=== PATIENT | male | born 1990 | race Caucasian/White ===

== ENCOUNTER 2020-07-03 09:36 | Inpatient (IN) | payer OTHER ==
[~2020-07-03] VITALS: Ht 162.6 cm; Wt 63.6 kg
[2020-07-03 11:25] LABS: BASOPHILS % (AUTO) 0.7 % (0.0-2.0); EOSINOPHILS % (AUTO) 0.7 % (1.0-6.0); HEMATOCRIT 42.1 % (41-53); HEMOGLOBIN 14.5 g/dL (13.5-17.5); LYMPHOCYTES # (AUTO) 1.3 K/uL (1.0-4.8); LYMPHOCYTES % (AUTO) 18.5 % (22.0-44.0); MEAN CORPUSCULAR HEMOGLOBIN 30.4 pg (26.0-34.0); MEAN CORPUSCULAR HGB CONC 34.4 G/dL (31.0-37.0); MEAN CORPUSCULAR VOLUME 88 fL (80-100); MONOCYTES # (AUTO) 0.4 K/uL (0.1-1.0); MONOCYTES % (AUTO) 5.8 % (2.0-9.0); NEUTROPHILS % (AUTO) 74.3 % (40.0-70.0); PLATELET COUNT (AUTO) 202 K/uL (150-450); RED BLOOD CELL COUNT(AUTO) 4.77 MIL/uL (4.50-5.90); RED CELL DISTRIBUTION WIDTH 13.1 % (11.5-14.5)
[2020-07-03 11:36] LABS: ANION GAP 5 mmol/L (8-16); CARBON DIOXIDE 30 mmol/L (22-29); CHLORIDE 103 mmol/L (98-107); CREATININE 0.77 mg/dL (0.60-1.30); GLOMERULAR FILTR. RATE CALC > 60 mL/min (>60); GLUCOSE,RANDOM 76 mg/dL (70-110); POTASSIUM 4.2 mmol/L (3.5-5.1); SODIUM SERUM 138 mmol/L (136-145); UREA NITROGEN, BLOOD 9 mg/dL (7-18)
[2020-07-03 11:42] LABS: ALANINE AMINOTRANSFERASE 28 U/L (12-78); ALBUMIN 4.3 g/dL (3.4-5.0); ALKALINE PHOSPHATASE 67 U/L (46-116); ASPARTATE AMINOTRANSFERASE 24 U/L (15-37); BILIRUBIN,TOTAL 0.9 mg/dL (0.1-1.0); TOTAL PROTEIN, SERUM 8.2 g/dL (6.4-8.2)
[2020-07-03 13:38] LABS: ACETAMINOPHEN < 2 mcg/mL (10-30); SALICYLATE < 2.8 mg/dL (2.8-20.0)
[2020-07-03 14:03] LABS: AMPHET/METH SCREEN,URINE NEGATIVE (NEGATIVE); BARBITURATE SCREEN, URINE NEGATIVE (NEGATIVE); BENZODIAZEPINES SCREEN,URINE NEGATIVE (NEGATIVE); CANNABINOID SCREEN,URINE NEGATIVE (NEGATIVE); COCAINE SCREEN,URINE NEGATIVE (NEGATIVE); METHADONE SCREEN, URINE NEGATIVE (NEGATIVE); OPIATE SCREEN,URINE NEGATIVE (NEGATIVE)
[2020-07-03 14:08] LABS: PHENCYCLIDINE SCREEN,URINE NEGATIVE (NEGATIVE)
[2020-07-03 14:42] LABS: COVID AG,FIA SOURCE NASOPHARYNGEAL
[2020-07-03] MEDS ORDERED: MAGNESIUM HYDROXIDE SUSPENSION 30 ML UDCUP PO PRN (15:00)
[2020-07-03] MEDS ORDERED: IPRATROPIUM BROMIDE 0.5 MG/2.5 ML NEB SOLUTION NEB PRN (15:00)
[2020-07-03] MEDS ORDERED: ONDANSETRON HCL 4 MG/2 ML VIAL IVP PRN (15:00)
[2020-07-03] MEDS ORDERED: BISACODYL 10 MG RECTAL RECTAL SUPPOSITORY PR PRN (15:00)
[2020-07-03] MEDS ORDERED: ALBUTEROL SULFATE 2.5 MG/0.5 ML NEB SOLUTION NEB PRN (15:00)
[2020-07-03 16:15] VITALS: BP 100/68
[2020-07-03 21:00] VITALS: BP 107/49
[2020-07-03] MEDS: ACETAMINOPHEN 325 MG TABLET PO PRN (21:08)
[2020-07-04 05:15] VITALS: BP 110/58
[2020-07-04] MEDS: ACETAMINOPHEN 325 MG TABLET PO PRN (07:51)
[2020-07-04 08:09] VITALS: BP 108/60
[2020-07-04] MEDS: FLUoxetine HCL 20 MG CAPSULE PO SCH (10:30)
[2020-07-04 19:45] VITALS: BP 100/61
[2020-07-05 04:58] VITALS: BP 102/59
[2020-07-05 07:30] VITALS: BP 110/66
[2020-07-05 07:57] LABS: BASOPHILS % (AUTO) 0.7 % (0.0-2.0); EOSINOPHILS % (AUTO) 1.5 % (1.0-6.0); HEMATOCRIT 40.4 % (41-53); HEMOGLOBIN 14.2 g/dL (13.5-17.5); LYMPHOCYTES # (AUTO) 1.6 K/uL (1.0-4.8); LYMPHOCYTES % (AUTO) 22.8 % (22.0-44.0); MEAN CORPUSCULAR HEMOGLOBIN 30.6 pg (26.0-34.0); MEAN CORPUSCULAR HGB CONC 35.2 G/dL (31.0-37.0); MEAN CORPUSCULAR VOLUME 87 fL (80-100); MONOCYTES # (AUTO) 0.5 K/uL (0.1-1.0); MONOCYTES % (AUTO) 7.1 % (2.0-9.0); NEUTROPHILS # (AUTO) 4.9 K/uL (1.8-7.7); NEUTROPHILS % (AUTO) 67.9 % (40.0-70.0); PLATELET COUNT (AUTO) 209 K/uL (150-450); RED BLOOD CELL COUNT(AUTO) 4.64 MIL/uL (4.50-5.90); RED CELL DISTRIBUTION WIDTH 13.1 % (11.5-14.5)
[2020-07-05] MEDS: FLUoxetine HCL 20 MG CAPSULE PO SCH (08:03)
[2020-07-05 08:29] LABS: ANION GAP 10 mmol/L (8-16); CALCIUM, TOTAL 8.9 mg/dL (8.8-10.5); CARBON DIOXIDE 26 mmol/L (22-29); CHLORIDE 105 mmol/L (98-107); CREATININE 0.81 mg/dL (0.60-1.30); GLOMERULAR FILTR. RATE CALC > 60 mL/min (>60); GLUCOSE,RANDOM 78 mg/dL (70-110); POTASSIUM 3.9 mmol/L (3.5-5.1); SODIUM SERUM 141 mmol/L (136-145); UREA NITROGEN, BLOOD 15 mg/dL (7-18)
[2020-07-05 15:00] VITALS: BP 112/64
[2020-07-05 19:01] VITALS: BP 116/80
[2020-07-05] MEDS: TraZODone HCL 50 MG TABLET PO PRN (20:29)
[2020-07-06 05:44] VITALS: BP 104/57
[2020-07-06 07:46] VITALS: BP 107/63
[2020-07-06] MEDS: FLUoxetine HCL 20 MG CAPSULE PO SCH (09:56)
[2020-07-06 15:59] VITALS: BP 112/68
[2020-07-06 19:49] VITALS: BP 113/63
[2020-07-06] MEDS: TraZODone HCL 50 MG TABLET PO PRN (20:36)
[2020-07-07 04:19] VITALS: BP 103/65
[2020-07-07 08:33] VITALS: BP 102/59
[2020-07-07] MEDS: FLUoxetine HCL 20 MG CAPSULE PO SCH (09:00)
[2020-07-07 20:30] VITALS: BP 104/65
[2020-07-07] MEDS: TraZODone HCL 50 MG TABLET PO PRN (21:32)
[2020-07-08 04:00] VITALS: BP 106/51
[2020-07-08 07:34] VITALS: BP 102/56
[2020-07-08] MEDS: FLUoxetine HCL 20 MG CAPSULE PO SCH (08:57)
[2020-07-08 20:25] VITALS: BP 104/65
[2020-07-08] MEDS: ACETAMINOPHEN 325 MG TABLET PO PRN (21:50)
[2020-07-08] MEDS: TraZODone HCL 50 MG TABLET PO PRN (21:50)
[2020-07-09 04:16] VITALS: BP 98/52
[2020-07-09] MEDS: FLUoxetine HCL 20 MG CAPSULE PO SCH (08:52)
[2020-07-09 08:58] VITALS: BP 119/86
[2020-07-09] MEDS: TraZODone HCL 50 MG TABLET PO PRN (21:17)
[2020-07-09 22:20] VITALS: BP 109/63
[2020-07-10 05:20] VITALS: BP 97/57
[2020-07-10] MEDS: FLUoxetine HCL 20 MG CAPSULE PO SCH (08:24)
[2020-07-10 08:28] VITALS: BP 98/56
[2020-07-10 19:50] VITALS: BP 130/78
[2020-07-10] MEDS: TraZODone HCL 50 MG TABLET PO PRN (20:44)
[2020-07-11 04:55] VITALS: BP 95/53
[2020-07-11 08:40] VITALS: BP 105/66
[2020-07-11] MEDS: FLUoxetine HCL 20 MG CAPSULE PO SCH (08:58)
[2020-07-11] MEDS ORDERED: FLUO-191 PO (09:29)
== END 2020-07-11 11:35 | DRG 178 ==
LOC: EMS 10:00 → 6S 14:38
PROVIDERS: ADMIT Internal Medicine; ATTEND Internal Medicine
DX: U07.1 COVID-19 (principal); R45.851 Suicidal ideations; F33.2 Major depressive disorder, recurrent severe without psychotic features; Z87.891 Personal history of nicotine dependence
CPT/HCPCS: 87426; G0480; G0481

== ENCOUNTER 2020-07-11 15:23 | Inpatient (IN) | payer OTHER ==
[~2020-07-11] VITALS: Ht 162.6 cm; Wt 69.2 kg
[~2020-07-11 15:23] MED LIST: FLUO-191 PO
[2020-07-11 17:31] LABS: COVID AG,FIA SOURCE NASOPHARYNGEAL
[2020-07-11 18:38] LABS: BASOPHILS % (AUTO) 1.5 % (0.0-2.0); EOSINOPHILS % (AUTO) 0.8 % (1.0-6.0); HEMATOCRIT 43.3 % (41-53); HEMOGLOBIN 15.2 g/dL (13.5-17.5); LYMPHOCYTES # (AUTO) 1.4 K/uL (1.0-4.8); LYMPHOCYTES % (AUTO) 18.9 % (22.0-44.0); MEAN CORPUSCULAR HEMOGLOBIN 30.8 pg (26.0-34.0); MEAN CORPUSCULAR HGB CONC 35.2 G/dL (31.0-37.0); MEAN CORPUSCULAR VOLUME 88 fL (80-100); MONOCYTES # (AUTO) 0.4 K/uL (0.1-1.0); MONOCYTES % (AUTO) 5.4 % (2.0-9.0); NEUTROPHILS # (AUTO) 5.5 K/uL (1.8-7.7); NEUTROPHILS % (AUTO) 73.4 % (40.0-70.0); PLATELET COUNT (AUTO) 244 K/uL (150-450); RED BLOOD CELL COUNT(AUTO) 4.94 MIL/uL (4.50-5.90); RED CELL DISTRIBUTION WIDTH 13.3 % (11.5-14.5)
[2020-07-11 18:50] LABS: ANION GAP 6 mmol/L (8-16); CARBON DIOXIDE 30 mmol/L (22-29); CHLORIDE 102 mmol/L (98-107); GLOMERULAR FILTR. RATE CALC > 60 mL/min (>60); GLUCOSE,RANDOM 83 mg/dL (70-110); POTASSIUM 4.2 mmol/L (3.5-5.1); SODIUM SERUM 138 mmol/L (136-145); UREA NITROGEN, BLOOD 10 mg/dL (7-18)
[2020-07-11 18:54] LABS: AMPHET/METH SCREEN,URINE NEGATIVE (NEGATIVE); BARBITURATE SCREEN, URINE NEGATIVE (NEGATIVE); BENZODIAZEPINES SCREEN,URINE NEGATIVE (NEGATIVE); CANNABINOID SCREEN,URINE NEGATIVE (NEGATIVE); COCAINE SCREEN,URINE NEGATIVE (NEGATIVE); METHADONE SCREEN, URINE NEGATIVE (NEGATIVE); OPIATE SCREEN,URINE NEGATIVE (NEGATIVE)
[2020-07-11 18:56] LABS: ALANINE AMINOTRANSFERASE 30 U/L (12-78); ALBUMIN 4.7 g/dL (3.4-5.0); ALKALINE PHOSPHATASE 74 U/L (46-116); ASPARTATE AMINOTRANSFERASE 23 U/L (15-37); BILIRUBIN,TOTAL 0.5 mg/dL (0.1-1.0); TOTAL PROTEIN, SERUM 8.8 g/dL (6.4-8.2)
[2020-07-11 19:05] LABS: PHENCYCLIDINE SCREEN,URINE NEGATIVE (NEGATIVE)
[2020-07-11 20:29] VITALS: BP 128/70
[2020-07-11] MEDS ORDERED: MAGNESIUM HYDROXIDE SUSPENSION 30 ML UDCUP PO PRN (22:15)
[2020-07-11] MEDS ORDERED: ZOLPIDEM TARTRATE 5 MG TABLET PO PRN (22:15)
[2020-07-11] MEDS ORDERED: ACETAMINOPHEN 325 MG TABLET PO PRN (22:15)
[2020-07-11] MEDS ORDERED: BISACODYL 10 MG RECTAL RECTAL SUPPOSITORY PR PRN (22:15)
[2020-07-11] MEDS ORDERED: ONDANSETRON HCL 4 MG/2 ML VIAL IVP PRN (22:15)
[2020-07-12 04:25] VITALS: BP 108/56
[2020-07-12 08:33] VITALS: BP 116/63
[2020-07-12] MEDS: FLUoxetine HCL 20 MG CAPSULE PO SCH (09:11)
[2020-07-12] MEDS: DOCUSATE SODIUM 100 MG CAPSULE PO SCH ×2 (09:11→20:26)
[2020-07-12] MEDS: SERTRALINE HCL 50 MG TABLET PO SCH ×2 (11:45→20:27)
[2020-07-12] MEDS ORDERED: ONDANSETRON HCL 4 MG TABLET PO PRN (17:45)
[2020-07-12] MEDS: TraZODone HCL 50 MG TABLET PO SCH (20:27)
[2020-07-12 20:48] VITALS: BP 114/54
[2020-07-13 04:50] VITALS: BP 114/51
[2020-07-13 08:26] VITALS: BP 108/61
[2020-07-13] MEDS: SERTRALINE HCL 50 MG TABLET PO SCH ×2 (09:25→20:48)
[2020-07-13] MEDS: DOCUSATE SODIUM 100 MG CAPSULE PO SCH ×2 (09:25→20:48)
[2020-07-13] MEDS: FLUoxetine HCL 20 MG CAPSULE PO SCH (09:25)
[2020-07-13] MEDS: ASCORBIC ACID 500 MG TABLET PO SCH (12:20)
[2020-07-13 20:09] VITALS: BP 122/65
[2020-07-13] MEDS: TraZODone HCL 50 MG TABLET PO SCH (20:48)
[2020-07-13] MEDS: ZINC SULFATE 220 MG CAPSULE PO SCH (20:48)
[2020-07-14 08:10] VITALS: BP 117/67
[2020-07-14] MEDS: DOCUSATE SODIUM 100 MG CAPSULE PO SCH ×2 (08:42→20:34)
[2020-07-14] MEDS: SERTRALINE HCL 50 MG TABLET PO SCH ×2 (08:42→20:34)
[2020-07-14] MEDS: ASCORBIC ACID 500 MG TABLET PO SCH (08:42)
[2020-07-14] MEDS: ZINC SULFATE 220 MG CAPSULE PO SCH ×2 (08:42→20:34)
[2020-07-14 20:00] VITALS: BP 120/67
[2020-07-14] MEDS: TraZODone HCL 50 MG TABLET PO SCH (20:34)
[2020-07-15 04:15] VITALS: BP 95/52
[2020-07-15] MEDS: DOCUSATE SODIUM 100 MG CAPSULE PO SCH ×2 (08:00→20:34)
[2020-07-15] MEDS: ZINC SULFATE 220 MG CAPSULE PO SCH ×2 (08:01→20:34)
[2020-07-15] MEDS: ASCORBIC ACID 500 MG TABLET PO SCH (08:01)
[2020-07-15] MEDS: SERTRALINE HCL 50 MG TABLET PO SCH ×2 (08:01→20:34)
[2020-07-15 08:18] VITALS: BP 110/66
[2020-07-15 20:15] VITALS: BP 110/64
[2020-07-15] MEDS: TraZODone HCL 50 MG TABLET PO SCH (20:34)
[2020-07-16 04:31] VITALS: BP 100/52
[2020-07-16] MEDS: DOCUSATE SODIUM 100 MG CAPSULE PO SCH ×2 (07:59→20:33)
[2020-07-16] MEDS: ZINC SULFATE 220 MG CAPSULE PO SCH ×2 (07:59→20:33)
[2020-07-16] MEDS: ASCORBIC ACID 500 MG TABLET PO SCH (07:59)
[2020-07-16] MEDS: SERTRALINE HCL 50 MG TABLET PO SCH ×2 (08:00→20:33)
[2020-07-16 08:05] VITALS: BP 106/50
[2020-07-16 12:13] VITALS: BP 116/67
[2020-07-16 16:13] VITALS: BP 116/63
[2020-07-16 20:25] VITALS: BP 120/69
[2020-07-16] MEDS: TraZODone HCL 50 MG TABLET PO SCH (20:33)
[2020-07-17 04:57] VITALS: BP 99/52
[2020-07-17 07:37] VITALS: BP 98/58
[2020-07-17] MEDS: DOCUSATE SODIUM 100 MG CAPSULE PO SCH ×2 (08:27→20:44)
[2020-07-17] MEDS: ASCORBIC ACID 500 MG TABLET PO SCH (08:28)
[2020-07-17] MEDS: SERTRALINE HCL 50 MG TABLET PO SCH ×2 (08:28→20:43)
[2020-07-17] MEDS: ZINC SULFATE 220 MG CAPSULE PO SCH ×2 (08:28→20:44)
[2020-07-17] MEDS: OLANZapine 5 MG TABLET PO SCH (12:53)
[2020-07-17] MEDS: TraZODone HCL 50 MG TABLET PO SCH (20:44)
[2020-07-17 21:05] VITALS: BP 93/45
[2020-07-17 22:42] VITALS: BP 96/45
[2020-07-18 05:25] VITALS: BP 106/66
[2020-07-18 08:22] VITALS: BP 108/72
[2020-07-18] MEDS: DOCUSATE SODIUM 100 MG CAPSULE PO SCH ×2 (09:00→21:20)
[2020-07-18] MEDS: ZINC SULFATE 220 MG CAPSULE PO SCH ×2 (09:17→21:20)
[2020-07-18] MEDS: OLANZapine 5 MG TABLET PO SCH (09:17)
[2020-07-18] MEDS: SERTRALINE HCL 50 MG TABLET PO SCH ×2 (09:17→21:20)
[2020-07-18] MEDS: ASCORBIC ACID 500 MG TABLET PO SCH (09:18)
[2020-07-18 19:28] VITALS: BP 114/70
[2020-07-18] MEDS: TraZODone HCL 50 MG TABLET PO SCH (21:20)
[2020-07-19 04:54] VITALS: BP 104/60
[2020-07-19 07:21] VITALS: BP 117/65
[2020-07-19] MEDS: SERTRALINE HCL 50 MG TABLET PO SCH ×2 (08:37→20:31)
[2020-07-19] MEDS: ZINC SULFATE 220 MG CAPSULE PO SCH ×2 (08:37→20:31)
[2020-07-19] MEDS: ASCORBIC ACID 500 MG TABLET PO SCH (08:37)
[2020-07-19] MEDS: DOCUSATE SODIUM 100 MG CAPSULE PO SCH ×2 (08:37→20:31)
[2020-07-19] MEDS: OLANZapine 5 MG TABLET PO SCH (08:38)
[2020-07-19 20:18] VITALS: BP 102/53
[2020-07-19] MEDS: TraZODone HCL 50 MG TABLET PO SCH (20:30)
[2020-07-20 07:45] VITALS: BP 128/81
[2020-07-20] MEDS: ASCORBIC ACID 500 MG TABLET PO SCH (08:10)
[2020-07-20] MEDS: ZINC SULFATE 220 MG CAPSULE PO SCH (08:10)
[2020-07-20] MEDS: OLANZapine 5 MG TABLET PO SCH (08:10)
[2020-07-20] MEDS: SERTRALINE HCL 50 MG TABLET PO SCH (08:10)
[2020-07-20] MEDS: DOCUSATE SODIUM 100 MG CAPSULE PO SCH (08:10)
[2020-07-20] MEDS ORDERED: SERT50TA12 PO (11:30)
[2020-07-20] MEDS ORDERED: TRAZ-252 PO (11:31)
[2020-07-20] MEDS ORDERED: MOM30 PO (11:31)
[2020-07-20] MEDS ORDERED: ACET-2865 PO (11:31)
== END 2020-07-20 16:55 | DRG 178 ==
LOC: EMS 15:23 → 6S 19:00
PROVIDERS: ADMIT Hospitalist; ATTEND Hospitalist
DX: U07.1 COVID-19 (principal); R45.851 Suicidal ideations; F33.2 Major depressive disorder, recurrent severe without psychotic features; F41.9 Anxiety disorder, unspecified; F17.210 Nicotine dependence, cigarettes, uncomplicated
CPT/HCPCS: 87081; 87426; 99285; Q0162

== ENCOUNTER 2024-04-10 14:51 | Inpatient (IN) | payer MEDICAID, OTHER ==
[~2024-04-10] VITALS: Ht 162.6 cm; Wt 68.1 kg
[~2024-04-10 14:51] MED LIST changes: +ACET-2247 PO; +BENZ100C68 PO; -FLUO-191 PO; +SERT-158 PO; +TRAZ-252 PO
[2024-04-10] MEDS ORDERED: HALOPERIDOL 5 MG TABLET PO PRN (16:45)
[2024-04-10] MEDS ORDERED: LORazepam 2 MG TABLET PO PRN (16:45)
[2024-04-10] MEDS ORDERED: ZOLPIDEM TARTRATE 10 MG TABLET PO PRN (17:15)
[2024-04-10 17:56] LABS: GLUCOMETER DEV NAME(LOC) POC.BV; POC SARS-COV2 AG, FIA NEGATIVE (NEGATIVE)
[2024-04-10 19:20] VITALS: BP 131/68; PULSE 77; RESP 16; TEMP 98.4; O2SAT 99
[2024-04-10 20:00] VITALS: BP 131/68; PULSE 77; RESP 16; TEMP 98.4; O2SAT 99
[2024-04-10] MEDS ORDERED: FLUTICASONE PROPIONATE 50 MCG/SPRAY 16 GM NASAL SPRAY NASAL SCH (21:00)
[2024-04-11 08:52] VITALS: BP 117/61; PULSE 69; RESP 18; TEMP 97.5; O2SAT 98
[2024-04-11 08:57] LABS: BASOPHILS % (AUTO) 1.4 % (0.0-2.0); EOSINOPHILS % (AUTO) 6.4 % (1.0-6.0); HEMATOCRIT 43.7 % (41-53); HEMOGLOBIN 14.8 g/dL (13.5-17.5); LYMPHOCYTES # (AUTO) 1.3 K/uL (1.0-4.8); MEAN CORPUSCULAR HGB CONC 33.8 G/dL (31.0-37.0); MEAN CORPUSCULAR VOLUME 92 fL (80-100); MONOCYTES # (AUTO) 0.4 K/uL (0.1-1.0); MONOCYTES % (AUTO) 6.1 % (2.0-9.0); NEUTROPHILS # (AUTO) 4.2 K/uL (1.8-7.7); NEUTROPHILS % (AUTO) 66.1 % (40.0-70.0); PLATELET COUNT (AUTO) 208 K/uL (150-450); RED BLOOD CELL COUNT(AUTO) 4.76 MIL/uL (4.50-5.90); RED CELL DISTRIBUTION WIDTH 13.2 % (11.5-14.5); WHITE BLOOD COUNT (AUTO) 6.3 K/uL (4.5-11.0)
[2024-04-11] MEDS: FLUTICASONE PROPIONATE 50 MCG/SPRAY 16 GM NASAL SPRAY NASAL SCH (09:08)
[2024-04-11 09:19] LABS: HEMOGLOBIN A1C 4.3 % (3.8-5.6)
[2024-04-11 09:47] LABS: ALANINE AMINOTRANSFERASE 19 U/L (12-78); ALBUMIN 3.6 g/dL (3.4-5.0); ALKALINE PHOSPHATASE 79 U/L (46-116); ANION GAP 6 mmol/L (8-16); ASPARTATE AMINOTRANSFERASE 20 U/L (15-37); BILIRUBIN,TOTAL 0.4 mg/dL (0.1-1.0); CARBON DIOXIDE 29 mmol/L (22-29); CHLORIDE 103 mmol/L (98-107); CHOL/HDL RATIO 2.8 (4.2-7.3); CHOLESTEROL 144 mg/dL (131-200); CREATININE 0.76 mg/dL (0.60-1.30); FREE T4 (FREE THYROXINE) 0.88 ng/dL (0.76-1.46); GLOMERULAR FILTR. RATE CALC > 60 mL/min (>60); GLUCOSE,RANDOM 69 mg/dL (70-110); HDL CHOLESTEROL 52 mg/dL (40-60); LDL CHOL (CALC.) 85 mg/dL (0-130); POTASSIUM 4.4 mmol/L (3.5-5.1); SODIUM SERUM 138 mmol/L (136-145); T4 (THYROXINE) 6.9 mcg/dL (4.7-13.3); TOTAL PROTEIN, SERUM 7.6 g/dL (6.4-8.2); TRIGLYCERIDES 35 mg/dL (15-150); UREA NITROGEN, BLOOD 15 mg/dL (7-18)
[2024-04-11 10:08] LABS: THYROID STIMULATING HORMONE 0.97 uIU/mL (0.36-3.74)
[2024-04-11] MEDS ORDERED: ONDANSETRON 4 MG TABLET PO PRN (13:45)
[2024-04-11] MEDS ORDERED: PETROLATUM,WHITE 28 GM JELLY TP PRN (13:45)
[2024-04-11] MEDS ORDERED: DOCUSATE SODIUM 100 MG CAPSULE PO PRN (13:45)
[2024-04-11] MEDS ORDERED: LOPERAMIDE HCL 2 MG CAPSULE PO PRN (13:45)
[2024-04-11] MEDS ORDERED: NICOTINE 14 MG/24 HOUR PATCH TD PRN (13:45)
[2024-04-11] MEDS ORDERED: GuaiFENesin/D-METHORPHAN [SUGAR-FREE] 200-20MG/10 ML SYRUP UDCUP PO PRN (13:45)
[2024-04-11] MEDS ORDERED: CloNIDine HCL 0.1 MG TABLET PO PRN (13:45)
[2024-04-11] MEDS ORDERED: MAGNESIUM HYDROXIDE SUSPENSION 30 ML UDCUP PO PRN (13:45)
[2024-04-11] MEDS ORDERED: MAG HYDROX/ALUMINUM HYD/SIMETH ES 30 ML SUSPENSION UDCUP PO PRN (13:45)
[2024-04-11] MEDS ORDERED: ACETAMINOPHEN 325 MG TABLET PO PRN (13:45)
[2024-04-11] MEDS ORDERED: ALBUTEROL SULFATE HFA 90 MCG/PUFF 8 GM INHALER IH PRN (13:45)
[2024-04-11] MEDS ORDERED: IBUPROFEN 400 MG TABLET PO PRN (13:45)
[2024-04-11] MEDS: SERTRALINE HCL 50 MG TABLET PO SCH (16:25)
[2024-04-11 20:00] VITALS: BP 112/75; PULSE 97; RESP 18; TEMP 98.6; O2SAT 98
[2024-04-11] MEDS: TraZODone HCL 50 MG TABLET PO SCH (20:32)
[2024-04-12 08:25] VITALS: BP 127/61; PULSE 79; RESP 19; TEMP 97.5; O2SAT 100
[2024-04-12 11:08] LABS: HEMOGLOBIN A1C 4.3 % (3.8-5.6)
[2024-04-12 11:27] LABS: THYROID STIMULATING HORMONE 0.25 uIU/mL (0.36-3.74)
[2024-04-12 20:36] VITALS: BP 132/62; PULSE 103; RESP 16; TEMP 97.9; O2SAT 100
[2024-04-13 09:23] VITALS: BP 120/59; PULSE 102; RESP 16; TEMP 97.4; O2SAT 98
[2024-04-13 21:01] VITALS: BP 120/59; PULSE 70; RESP 16; TEMP 98.3; O2SAT 99
[2024-04-14 08:18] VITALS: BP 126/63; PULSE 79; RESP 17; TEMP 98.1; O2SAT 99
[2024-04-14 09:29] LABS: CHOL/HDL RATIO 3.9 (4.2-7.3)
[2024-04-14] MEDS ORDERED: TRAZ-252 PO (10:23)
[2024-04-14] MEDS ORDERED: SERT-439 PO (10:23)
[2024-04-14 10:28] LABS: ALCOHOL, URINE DRUG SCREEN NEGATIVE (NEGATIVE); APPEARANCE,URINE HAZY (CLEAR); BARBITURATE SCREEN, URINE NEGATIVE (NEGATIVE); BENZODIAZEPINES SCREEN,URINE NEGATIVE (NEGATIVE); BILIRUBIN,URINE NEGATIVE (NEGATIVE); CANNABINOID SCREEN,URINE NEGATIVE (NEGATIVE); COCAINE SCREEN,URINE NEGATIVE (NEGATIVE); COLOR,URINE YELLOW (YELLOW); GLUCOSE, URINE (UA) NEGATIVE (NEGATIVE); KETONES,URINE NEGATIVE (NEGATIVE); LEUKOCYTE ESTERASE ,URINE NEGATIVE (NEGATIVE); METHADONE SCREEN, URINE NEGATIVE (NEGATIVE); NITRATE,URINE NEGATIVE (NEGATIVE); OCCULT BLOOD,URINE NEGATIVE (NEGATIVE); OPIATE SCREEN,URINE NEGATIVE (NEGATIVE); PH,URINE 7.5 (5.0-8.0); PH,URINE DRUG SCREEN 7.5 (5.0-8.0); PHENCYCLIDINE SCREEN,URINE NEGATIVE (NEGATIVE); PROTEIN,URINE NEGATIVE (NEGATIVE); SPECIFIC GRAVITIY, URINE 1.022 (1.003-1.030); UROBILINOGEN,URINE <=1.0 mg/dL (<=1.0)
[2024-04-14 10:43] LABS: AMPHET/METH SCREEN,URINE NEGATIVE (NEGATIVE)
== END 2024-04-14 15:10 | disposition home or self-care (01) | DRG 750 ==
LOC: B2S 16:37
PROVIDERS: ADMIT Psychiatry & Neurology Psychiatry; ATTEND Psychiatry & Neurology Psychiatry
PROC: GZ52ZZZ Individual Psychotherapy, Cognitive (ICD-10-PCS; principal; 2024-04-11)
PROC: GZ56ZZZ Individual Psychotherapy, Supportive (ICD-10-PCS; 2024-04-11)
DX: F25.1 Schizoaffective disorder, depressive type (principal); F10.10 Alcohol abuse, uncomplicated; J45.909 Unspecified asthma, uncomplicated; F11.10 Opioid abuse, uncomplicated; Z20.822 Contact with and (suspected) exposure to COVID-19; I10 Essential (primary) hypertension; Z79.899 Other long term (current) drug therapy
CPT/HCPCS: 80053; 80061; 80307; 81003; 83036; 84436; 84439; 84443; 85025

== ENCOUNTER 2025-04-24 23:11 | Emergency (ER) | payer OTHER ==
[~2025-04-24] VITALS: Ht 167.6 cm; Wt 68.2 kg
[~2025-04-24 23:11] MED LIST changes: -ACET-2247 PO; -BENZ100C68 PO; -SERT-158 PO; +SERT-439 PO
[2025-04-24 23:56] VITALS: TEMP 98.4
[2025-04-25 01:07] LABS: PLATELET COUNT (AUTO) 219 K/uL (150-450); RED BLOOD CELL COUNT(AUTO) 4.34 MIL/uL (4.50-5.90); RED CELL DISTRIBUTION WIDTH 13.5 % (11.5-14.5); WHITE BLOOD COUNT (AUTO) 7.0 K/uL (4.5-11.0)
[2025-04-25 01:13] LABS: CALCIUM, TOTAL 8.2 mg/dL (8.8-10.5); CREATININE 0.84 mg/dL (0.60-1.30); GLOMERULAR FILTR. RATE CALC > 60 mL/min (>60); GLUCOSE,RANDOM 119 mg/dL (70-110); SODIUM SERUM 138 mmol/L (136-145); UREA NITROGEN, BLOOD 11 mg/dL (7-18)
[2025-04-25 01:18] LABS: ASPARTATE AMINOTRANSFERASE 22.0 U/L (15-37); TOTAL PROTEIN, SERUM 7.0 g/dL (6.4-8.2)
[2025-04-25 05:06] VITALS: BP 116/68; PULSE 71; RESP 15; O2SAT 100
== END 2025-04-25 06:03 | disposition home or self-care (01) ==
LOC: EMS 23:13
DX: R10.84 Generalized abdominal pain (principal); Z79.899 Other long term (current) drug therapy
CPT/HCPCS: 99285; 80048; 80076; 83690; 85025; 36415; G0480